=== PATIENT | male | born 1935 | race Caucasian/White ===

== ENCOUNTER 2016-10-03 14:48 | Emergency (ER) | payer MEDICARE ==
[~2016-10-03 14:48] MED LIST: ARICEPT10 MG PO; ASPIRIN EC325 MG PO; CALCIUM 500 +1 EAC2 PO; CARDURA DPS2 MG PO; CLOPIDOGREL75 MG PO; DOCUSATE SODIU1 EACH PO; FLOVENT 110MCG12 GM NS; GUAIFENESIN400 MG PO; LASIX DPS20 MG PO; LIPITOR DPS10 MG PO; MAALOX DPS30 ML PO; NITROSTAT0.4 MG SL; NORVASC DPS10 MG PO; OMEGA-3 DPS1000 MG PO; PRESERVISION A1 EAC2 PO; PROAIR RESPICL90 MCG IH; PROTONIX40 MG PO; RESTORIL DPS15 MG PO; SPIRIVA18 MCG IH; SYMBICORT80 MCG/6.9 IH; TYLENOL DPS325 MG PO; ULTRAM DPS50 MG PO; VITAMIN D-32000 UNI1 PO; ZESTRIL DPS40 MG PO
--- NOTE | 2016-10-14 14:37 | ER ---
ADMIT: 10/03/2016 RM/LOC: ER [facility] MR#: [id number] [address] [address] D[address] CONTE [address] [place] [address] Emergency Room Report SEX: M AGE: 81 : 1935 DATE: 10/03/2016 ADDENDUM: CHIEF COMPLAINT: Right hip pain. HISTORY OF PRESENT ILLNESS: This is an 81-year-old who says his pain has been progressing for the last 2 weeks. Has not been febrile, has not been ill. Just says that it is becoming more painful to walk on it. COURSE IN THE EMERGENCY ROOM: An x-ray and ultrasound was done of his right hip, right femur, and ultrasound of his leg, everything is negative for any acute findings. His CBC and BMP were done. CBC is normal except for white count of 10.7, hemoglobin 13.7. CMP; his bicarb is slightly high at 35, his BUN is 25, glucose 111 and creatinine 1.6. Sodium, potassium, and chloride are normal. Liver functions are normal. He was discharged home. I did prescribe him tramadol 50 mg, dispensed 20. DISPOSITION: He actually had improvement of pain without receiving any pain medications while here. He will follow up with the [facility] if his symptoms worsen. DAWOOD Toscano / Isra Woodward MD / modl JOB #: [id number] CC: Isra Woodward MD, Attending Physician . [facility], [facility] Physician
[2017-01-28] MEDS ORDERED: VIBRAMYCIN-DPS100 M2 PO (11:57)
[2017-01-28] MEDS ORDERED: CAPSAICIN42.5 GM TP (12:05)
[2017-01-28] MEDS ORDERED: CYMBALTA20 MG PO (12:05)
[2017-01-28] MEDS ORDERED: BACTROBAN OINT.22 GM TP (12:07)
[2017-01-28] MEDS ORDERED: LC-545 GM TP (12:07)
[2017-01-28] MEDS ORDERED: PREDNISONE20 MG PO (12:08)
[2017-01-28] MEDS ORDERED: NICOTINE GUM2 MG PO (12:08)
[2017-01-28] MEDS ORDERED: FLOMAX DPS0.4 MG PO (12:09)
[2017-01-28] MEDS ORDERED: ULTRAM DPS50 MG PO (12:09)
[2017-01-28] MEDS ORDERED: ERYTHROMYCIN 2%60 GM TP (12:10)
== END 2016-10-03 17:10 | disposition home or self-care (01) ==
LOC: ER 14:48
DX: M25.551 Pain in right hip (principal); M79.89 Other specified soft tissue disorders; I10 Essential (primary) hypertension; Z95.5 Presence of coronary angioplasty implant and graft; J44.9 Chronic obstructive pulmonary disease, unspecified; I25.2 Old myocardial infarction; F17.210 Nicotine dependence, cigarettes, uncomplicated; Z86.73 Personal history of transient ischemic attack (TIA), and cerebral infarction without residual deficits; Z79.51 Long term (current) use of inhaled steroids; Z79.2 Long term (current) use of antibiotics; Z79.01 Long term (current) use of anticoagulants; Z79.899 Other long term (current) drug therapy

== ENCOUNTER 2017-01-26 15:36 | Inpatient (IN) | payer MEDICARE ==
[~2017-01-26] VITALS: Ht 180.3 cm; Wt 94.2 kg
[2017-01-28] MEDS ORDERED: VIBRAMYCIN-DPS100 M2 PO (11:57)
[2017-01-28] MEDS ORDERED: CAPSAICIN42.5 GM TP (12:05)
[2017-01-28] MEDS ORDERED: CYMBALTA20 MG PO (12:05)
[2017-01-28] MEDS ORDERED: BACTROBAN OINT.22 GM TP (12:07)
[2017-01-28] MEDS ORDERED: LC-545 GM TP (12:07)
[2017-01-28] MEDS ORDERED: PREDNISONE20 MG PO (12:08)
[2017-01-28] MEDS ORDERED: NICOTINE GUM2 MG PO (12:08)
[2017-01-28] MEDS ORDERED: ULTRAM DPS50 MG PO (12:09)
[2017-01-28] MEDS ORDERED: FLOMAX DPS0.4 MG PO (12:09)
[2017-01-28] MEDS ORDERED: ERYTHROMYCIN 2%60 GM TP (12:10)
--- NOTE | 2017-01-31 16:44 | DS ---
ADMIT: 01/26/2017 RM/LOC: 417 [facility] MR#: [id number] [address] [address] DAPHNE CONTE [address] [address] Discharge Summary SEX: M AGE: 81 : 1935 ADMISSION DATE: 01/26/2017 DISCHARGE DATE: 01/27/2017 Thirty-three minutes was taken on the day of discharge explaining his reason for hospitalization and explaining discharge and followup instructions, as well as other discharge activities. FINAL DIAGNOSES: 1. Chest pain, likely musculoskeletal. 2. COPD (chronic obstructive pulmonary disease) with exacerbation. 3. Chronic hypoxic respiratory failure. 4. Coronary artery disease. 5. Diabetes. 6. History of stroke. REASON FOR ADMISSION: This is an 81-year-old gentleman with known coronary artery disease and COPD, who presented with chest pain after being seen at the [facility]. He presented to the emergency room. After I evaluated him he was admitted. History obtained, found that he had had a fall onto his left side of his chest into a door and his pain was worse with deep breathing. He had no worsening of hypoxia, no tachycardia and was feeling well by the day of discharge. He was treated for COPD exacerbation with IV steroids, nebulizer treatments, and doxycycline. By the day of discharge, he was having much less wheezing. Oxygen saturations were stable on his home amount of oxygen so he was set up to be discharged home. He will be on the same home medications. I did decrease his calcium from two pills to one pill and I will have him on prednisone 40 mg daily for five more days, doxycycline 100 mg b.i.d. for 10 more days. Graham Silverman MD/ sonny JOB #: [id number] CC: Graham Silverman MD, Attending Physician [facility] Physician, Family Physician . [facility]
--- NOTE | 2017-01-31 16:44 | HP ---
ADMIT: 01/26/2017 RM/LOC: 417 [id number] [address] [address] [address]NE CONTE [address] [place] [address] History and Physical SEX: M AGE: 81 : 1935 DATE OF SERVICE: CHIEF COMPLAINT: Chest pain. HISTORY OF PRESENT ILLNESS: This is an 81-year-old gentleman, usually gets care from the [facility], went to the [facility] today to get hearing aids checked. At that time, he was complaining of some chest pain and heaviness in his chest. He has a history of heart disease. He also has had multiple falls recently. His legs have been a kind of giving out, and he felt a kind of weak; so a couple of days ago, he had actually fallen with the left side striking the door in his house that caused him to fall to the floor. This has created some pain in the left side of his chest because of that. He does have oxygen that he is supposed to be wearing, but according to the daughter, he does not always wear it. His pain seems to be getting a little bit progressively worse ever since his fall. X-ray really looked like chronic changes but nothing acute. Initial enzymes were okay. He was wheezy and was hypoxic initially. He is also wheezing, have a little coughing. Sputum has gone from clear to thicker and is little bit more short of breath than usual. PAST MEDICAL HISTORY: Includes COPD, coronary artery disease. He has had stents in the past. I think his most recent cath was in 2012. He has hypertension, type 2 diabetes, hyperlipidemia, history of multiple strokes, GERD, chronic hypoxic respiratory failure with oxygen dependence, osteoporosis, glaucoma, chronic back pain, peripheral vascular disease, depression, and chronic kidney disease stage 3. PAST SURGICAL HISTORY: Surgeries include cataract surgery, sinus surgery, appendectomy, left carotid endarterectomy, and tonsillectomy. MEDICATIONS: Per the admission medication list. SOCIAL HISTORY: He has been a long-time smoker. He is and then . He smokes about half pack of cigarettes now. He did smoke about 2 packs a day for about 50 years. FAMILY HISTORY: Significant for cancer, hypertension, heart disease, diabetes, and strokes. REVIEW OF SYSTEMS: Other complete review of systems obtained and negative except for his chronic problems. PHYSICAL EXAMINATION: VITAL SIGNS: Temperature 97.3, pulse 86, respirations 18, blood pressure 157/71, and oxygen saturation 95% on 2 L of oxygen by nasal cannula. GENERAL: This is an elderly appearing 81-year-old gentleman. He is in no apparent distress. He is alert. He is oriented. He is wearing glasses. HEENT: Pupils are equal, round, and reactive to light and accommodation. He has hearing aids in place. His throat is clear. NECK: Supple. Trachea midline. Thyroid not palpable. ADMIT: 01/26/2017 RM/LOC: 417 [facility] MR#: [id number] [address] [place] [id number] D[address]NE CONTE [address] [place] [address] History and Physical SEX: M AGE: 81 : 1935 HEART: Regular rate and rhythm. LUNGS: Have diffuse rhonchi and then expiratory wheezes bilaterally. ABDOMEN: Protuberant but soft without any tenderness. EXTREMITIES: He can move all extremities equally and bilaterally. He has trace lower extremity edema. Feet are little cool. Balance is a little bit weak. LABORATORY AND X-RAY DATA: Initial cardiac enzymes are normal. EKG showed normal sinus rhythm, little PAC at one point. Chest x-ray with chronic changes. Lactic acid is normal. Blood sugar is 154. Creatinine 1.7, BUN 33. Potassium 5.2, sodium 139. INR is 1. CBC shows a white count of 18.7, hemoglobin 12.7, and platelets of 251. It should be noted that he was recently put on prednisone for increased cough and COPD. ASSESSMENT: 1. Chest pain, acute, likely musculoskeletal in nature. 2. Hypoxic respiratory failure, chronic. 3. Chronic obstructive pulmonary disease with exacerbation. 4. Chronic kidney disease history. 5. Diabetes. 6. Coronary artery disease. 7. Weakness. 8. Falls. PLAN: He is admitted. We will treat him for COPD exacerbation with doxycycline, IV steroids, and nebulizer treatments. Now, rule him out for acute cardiac ischemia. Otherwise, we will continue his same home medications. Control his blood sugars closely. Graham Silverman MD/ new JOB #: [id number] CC: Graham Silverman MD, Attending Physician [facility] Physician, Family Physician
--- NOTE | 2017-01-31 19:11 | ER ---
ADMIT: 01/26/2017 RM/LOC: 417 [facility] MR#: [id number] [address] [address] [address]TE [place] [address] Emergency Room Report SEX: M AGE: 81 : 1935 DATE: 01/26/2017 ADDENDUM: CHIEF COMPLAINT: Chest pain. HISTORY OF PRESENT ILLNESS: This is an 81-year-old male who was at the [facility] today just for his hearing aids. He started complaining of that to them of chest pain and heaviness in his chest, and he does have a history of cardiac disease. He also recently has multiple falls due to his legs giving out. He just felt weak. He supposed to be wearing oxygen at home, but according to daughter, he is not always wearing his oxygen. Just a couple days ago, he fell and he hit his left ribs. He has progressively worsened since then. Chest x-ray was done, it is negative for any acute findings. Cardiac routine was ordered initially because he denied any chest pressure here, so no medications were given. Overall findings, his EKG showed a rate of 77, no ST elevation or depression, over-read by Dr. Oconnor. His CBC showed an elevated white count of 18.7, hemoglobin of 12.7. Lactic acid is elevated at 3.1. CMP is normal except for a creatinine of 1.7 and a BUN of 33 and slightly elevated glucose of 217. CK is low at 28, but troponin is normal at 0.015. Due to him being in chest pain, he is unstable to transfer to [facility]. CLINICAL IMPRESSION: 1. Chest pain. 2. Chronic obstructive pulmonary disease exacerbation. 3. Left rib contusion. 4. Generalized weakness with multiple falls. DISPOSITION: I did call Dr. Silverman, he is admitting for [facility]. DAWOOD Toscano / Ike Oconnor MD / new JOB #: [id number] CC: Graham Silverman MD, Attending Physician [facility] Physician, Family Physician
== END 2017-01-27 12:08 | disposition home or self-care (01) | DRG 191 ==
LOC: ER 15:36 → 4PCU 19:15
PROVIDERS: ADMIT Internal Medicine
DX: J44.1 Chronic obstructive pulmonary disease with (acute) exacerbation (principal); J96.11 Chronic respiratory failure with hypoxia; E11.22 Type 2 diabetes mellitus with diabetic chronic kidney disease; E11.51 Type 2 diabetes mellitus with diabetic peripheral angiopathy without gangrene; R07.89 Other chest pain; I25.10 Atherosclerotic heart disease of native coronary artery without angina pectoris; E78.5 Hyperlipidemia, unspecified; M81.0 Age-related osteoporosis without current pathological fracture; H40.9 Unspecified glaucoma; M54.9 Dorsalgia, unspecified; G89.29 Other chronic pain; N18.3 Chronic kidney disease, stage 3 (moderate); I12.9 Hypertensive chronic kidney disease with stage 1 through stage 4 chronic kidney disease, or unspecified chronic kidney disease; F17.210 Nicotine dependence, cigarettes, uncomplicated; Z97.4 Presence of external hearing-aid; Z91.81 History of falling; Z86.73 Personal history of transient ischemic attack (TIA), and cerebral infarction without residual deficits; Z95.5 Presence of coronary angioplasty implant and graft